=== PATIENT | female | born 1970 | race Caucasian/White ===

== ENCOUNTER 2018-01-20 16:53 | Emergency (ER) | payer MEDICARE ==
[~2018-01-20] VITALS: Ht 170.2 cm; Wt 113.4 kg
[2018-01-20] MEDS ORDERED: HYDROCODONE/APAP 5MG-325MG TAB ONE (17:54)
[2018-01-20] MEDS ORDERED: HYDROCODONE/APAP 5MG-325MG TAB PO ONE (18:00)
[2018-01-20 21:55] VITALS: BP 142/94
== END 2018-01-20 22:28 | disposition home or self-care (01) ==
LOC: ER 16:53
DX: M54.2 Cervicalgia (principal); M43.6 Torticollis; I10 Essential (primary) hypertension; F79 Unspecified intellectual disabilities; G31.84 Mild cognitive impairment of uncertain or unknown etiology; F41.9 Anxiety disorder, unspecified; F32.9 Major depressive disorder, single episode, unspecified
CPT/HCPCS: 99283